=== PATIENT | male | born 1980 | race Caucasian/White ===

== ENCOUNTER → 2022-10-30 07:29 | Outpatient (REF) | payer BC, SELFPAY ==
--- NOTE | 2022-10-30 07:40 | CA_ITS ---
Transthoracic Echocardiogram Patient (Last, First, Middle): Humberto Encinas R Gender: Male Date of : 1980 Age: 42 Procedure Date: 10/30/2022 Procedure Type: Transthoracic Echocardiogram Location: OP Height: 180.34 cm Weight: 103.42 kg BSA: 2.23 m2 Heart Rate: bpm BP: 132 / 80 mmHg Gas Regulator Repairer: OCTAVIANO Referring MD: Sindy Thao PATTERN H[employer]ER Sales Special Agent: Kamari Celestin MD Symptoms: R07.89 CHEST PRESSURE, WORSNING EPISODES SVT Study Quality: Excellent ECG Rhythm: Sinus Conclusions: - Normal study Findings Left Ventricle Normal left ventricular size, thickness, and systolic function. The visually estimated ejection fraction is between 55-60%. Spectral Doppler is indicative of a normal filling pattern. Right Ventricle Normal right ventricular cavity size and systolic function. Atria Both atria are normal in size. There is lipomatous hypertrophy of the interatrial septum. There is no evidence of interatrial shunt. Aortic Valve Normal aortic valve structure and function. There is no aortic valve stenosis. There is no aortic valve regurgitation. Mitral Valve Normal mitral valve structure and function. There is no mitral valve regurgitation. There is no mitral valve stenosis. Pulmonic Valve The pulmonic valve is likely normal. Tricuspid Valve Normal tricuspid valve structure. There is trace tricuspid valve regurgitation. The right ventricular systolic pressure is normal. The right ventricular systolic pressure is 20 mmHg. Normal right atrial pressure. There is no evidence of pulmonary hypertension. Great Vessels All visible segments of the aorta are normal in size. The pulmonary artery was not well visualized. Venous The inferior vena cava is normal in size and collapses greater than 50% with inspiration. Pericardium/Pleural There is no evidence of pericardial effusion. Prior Study Comparison No prior study available for comparison. Measurements 2D Linear Measurements IVSd: 0.91 0.6-0.9/0.6-1.0 cm LVIDd: 5.48 3.9-5.3/4.2-5.9 cm LVIDd Index: 2.46 2.4-3.2/2.2-3.1 cm/m2 LVIDs: 3.32 2.0-3.6 cm LVPWd: 1.04 0.7-1.1 cm Ao Root: 3.50 2.1-3.5 cm LA Diam: 3.90 2.7-3.8/3.0-4.0 cm LAIDs Index: 1.75 1.5-2.3 cm/m2 LV Mass: 255.09 67-162/88-224 g LV Mass Index: 114.39 43-95/49-115 g/m2 LVOT Diam: 2.60 3.0+(-)1.3 cm 2D Systolic Function EF 4C: 53.60 >55% EF 2C: 51.50 >55% Mitral Valve MV Pk E: 0.68 MV PK A: 0.48 MV Decel Time: 187.00 E/A: 1.40 E'Lateral: 14.40 E'Medial: 8.05 E/E' Med: 8.50 E/E' Lat: 4.70 PHT: 55.00 MVA PHT: 4.00 Decel [place]: 3.65 Aortic Valve AoV Pk Last: 0.95 AoV Mn Last: 0.70 AoV VTI: 0.22 AoV Pk Grad: 4.00 Aov Mn Grad: 2.00 SUKHJINDER Cont.VTI: 4.58 LVOT LVOT Pk Last: 0.85 LVOT Mn Last: 0.57 LVOT VTI: 0.19 LVOT Pk Grad: 3.00 LVOT Mn Grad: 2.00 LVOT Diam: 2.60 LVOT Area: 5.31 Diastolic Function MV Pk E: 0.68 MV Pk A: 0.48 E/A: 1.40 E'Medial: 8.05 E/E' Med: 8.50 E' Laterial: 14.40 E/E' Lat: 4.70 Right Ventricle TAPSE (mm): 29.00 TVS' Last: 13.00 Tricuspid Valve TR Pk Last: 2.04 TR Pk Grad: 17.00 RA Press: 3.00 RVSP: 20.00 Great Vessels Aorta Ao Root-2D: 3.50 2.0-3.7 cm Ao Asc: 3.50 2.1-3.4 cm Pulmonary Valve PV Pk Last: 1.09 Peak PV Grad: 5.00 Updated in Other Vendor System with Status of Final Kamari Celestin MD electronically signed on 10/30/2022 5:41:02 PM with status of Final
== END ==
LOC: HO.CARD 07:29
PROVIDERS: PCP Nurse Practitioner Family; Visit Provider Nurse Practitioner Family
DX: R07.89 Other chest pain (principal); I47.1 Supraventricular tachycardia
CPT/HCPCS: 93306

== ENCOUNTER → 2023-02-04 08:30 | Outpatient (BNVA) | payer OTHER, SELFPAY | PROVIDERS: PCP Nurse Practitioner Family; Referring Provider Nurse Practitioner Family; Visit Provider Internal Medicine | DX: I47.1 Supraventricular tachycardia (principal) | CPT/HCPCS: 93005 ==

== ENCOUNTER 2025-07-12 11:30 | Outpatient (AMB) | payer OTHER, SELFPAY ==
[2025-07-12 11:34] VITALS: BP 136/82; PULSE 93; BMI 33.8
--- NOTE | 2025-07-12 11:34 | MHC.OFFVIS ---
Vital Signs 07/12/25 11:34 Height 5 ft 11 in Weight 242 lb 8.136 oz BMI 33.8 BP 136/82 Blood Pressure Location Lt brachial Position Sitting Pulse 93 Pulse Source Monitor Intake Visit Reasons: PCP referral- HS pt/ SVT- Pre op eye surg 07/14 Accompanied by: Self / Same As Patient Allergies No Known Allergies Allergy (Verified 07/12/25 11:38) Medication List - Last Reconciled 07/12/25 by Gary Man MD blood sugar diagnostic (FreeStyle Lite Strips) As directed blood-glucose meter (FreeStyle Lite Meter kit) As directed lancets (FreeStyle Lancets) As directed HPI Comments Details: Humberto has been referred for evaluation as he needs surgery for retinal detachment. He was seen in 2022 regarding supraventricular tachycardia. Has had palpitations since teenage years, sometimes years more than the others. In 2021, had palpitations which led to ER visit at [facility]. In one of those EKGs, suggestion of NSVT in the initial part which converted back to sinus rhythm. Since then, he is generally doing well. Rare palpitations and they only last for seconds or so nothing prolonged. No further ER visits. No other complaints like exertional chest pains extra. Unlimited exercise tolerance. [facility] Medical History (Updated 07/12/25 @ 11:55 by Gary Man MD) Diabetes mellitus Surgical History History of surgery on lower extremity Family History (Updated 02/04/23 @ 08:38 by Robyn Silva) Mother No problems noted. Father No problems noted. Social History (Updated 02/04/23 @ 08:39 by Robyn Silva) Alcohol intake: current Alcohol intake frequency: holidays/special occasions only Patient Tobacco Use Status: Never used Tobacco Review of Systems Const Denies daytime sleepiness, Denies difficulty sleeping, Denies snoring, Denies stops breathing during sleep and Denies weakness Card Denies chest pain, Denies rapid heart rate, Denies irregular heart rhythm, Denies claudication, Denies leg edema, Denies lightheadedness, Denies palpitations, Denies dyspnea, Denies dyspnea on exertion, Denies orthopnea, Denies paroxysmal nocturnal dyspnea and Denies slow heart rate Resp Denies cough, Denies dyspnea, Denies dyspnea on exertion and Denies snoring GI Reports no additional complaints, Denies hematochezia, Denies change in stool character and Denies dyspepsia Musc Denies abnormal gait, Denies muscle weakness and Denies numbness Neuro Denies abnormal gait, Denies numbness and Denies weakness Endo Denies palpitations Physical Exam Vital Signs: Last Vital Signs Pulse 93 07/12/25 11:34 BP 136/82 07/12/25 11:34 BMI result Body Mass Index 33.8 Const General: comfortable and no acute distress Orientation/consciousness: patient oriented x3 HEENT Other: Unremarkable Head: Yes normal to inspection Neck Neck: Yes normal visual inspection Chest Chest palpation & inspection: normal inspection of the chest Resp Auscultation: clear to auscultation bilaterally Cardio Palpation: normal PMI Heart sounds: S1 normal heart sound present, S2 normal heart sound present, no gallops, no murmurs and no rubs GI Palpation (GI): Soft to palpation Back/Spine/Pelvis Other: unremarkable Skin General skin exam: no rashes or lesions noted Neuro General: patient oriented x3 Extrem General: Yes normal to inspection Psych Mental Status: mental status grossly normal Office Procedures EKG Details: EKG with underlying sinus rhythm at 93/Min; no significant ST-T changes; [place] [id number], Complete Assessment & Plan Assessment & Plan (1) Supraventricular tachycardia: Code(s): I47.1 - Supraventricular tachycardia Category: Medical (2) Preoperative cardiovascular examination: Code(s): Z01.810 - Encounter for preprocedural cardiovascular examination Category: Medical Plan With regard to the SVT, narrow complex tachycardia known in the [facility] EKG-seen in the initial part but then converted to sinus in his later part of the EKG. Possible AVNRT. There is also a lot of artifact in that racing. Other EKGs shows sinus rhythm/sinus tachycardia. In the echocardiogram, LVEF is 55-60%. Otherwise normal. Overall, he has got supraventricular tachycardia with rare, brief symptoms. He is already well versed with arrhythmia management including Valsalva maneuver, taking some deep breaths extra and has been quite successful with that. We again discussed about maintenance medications like beta-blockers but he states he would rather not take anything as symptoms are very infrequent. We also discussed about EP referral but he felt he would rather leave it as it is for now. In case there is worsening palpitations, we will readdress that. With regard to the retinal surgery, may proceed. Low cardiac risk. Total time spent including review of data, counseling, documentation, coordination of care-32 minutes. Coding Level of Care Code Est Pt Level 4 (00042) Diagnoses Supraventricular tachycardia I47.1 Preoperative cardiovascular examination Z01.810 CPT Codes EKG - CPT: 65194-[id number], Complete ([id number])
--- OUTSIDE RECORDS SUMMARY | 2025-07-12 13:59 | XMS_ITS | Clinical Summary ---
Author Organization [employer] Address [address] [place] [address] [address] [place] [address] Care Team Providers Care Hand Stemmer Name Role Phone PcpOliver Unassigned Primary Care Provider U navailable Allergies No known active allergies Medications No known medications Active Problems Problem Noted Date Diagnosed Date Blurry vision, left eye 09/27/2024 Overview (09/27/2024): Patient reports spot of blurry vision at top of visual field, left. Ongoing since 2022 when he first felt foreign body sensation in left eye. Foreign body sensation has since resolved. EOMs intact, no foreign body visualized in eye, no eye pain. Patient has not seen an eye doctor, advised visit as soon as possible. Patient reports he will go see recovery analyst at [facility] today. Follow up if symptoms worsen or fail to improve. Routine general medical exam ination at a health care facility 06/21/2024 Overview (06/21/2024): CPE done 06/21/24. HEALTH CARE MAINTENANCE: Colonoscopy (age 45-75): No family history of colon cancer. AAA Screen (age 65-75, ever smoked): Never smoker LDCT (smoke >30 pack year, age 55-80): Never smoker DEXA (age 70): Age 43. : Hesitancy: None Interruption of flow: none Dysuria: none Hematuria: None Nocturia: Sometimes. PSA Screening: Age 43. EYES: Does not get, never had issues until recently. Recommended to make eye exam. DENTAL: Been over a year. NUTRITION: No soda, pasta, rice, has cut out a lot of processed food. Eating meat and salad. EXERCISE: Active job, plays basketball. IMMUNIZATIONS: Tetanus (every 10 years): 2020. COVID: 2021, x2. Did not have, does not want. FLU: Does not want. Obesity with body mass index 30 or greater 10/14 Overview (06/21/2024): BMI 32. Diet and exercise recommendations reviewed. I suggest a balanced diet of fruits, vegetables, whole grains, lean proteins, and healthy fats while limiting processed foods, added sugars, and unhealthy fats. Small, consistent changes can reduce chronic disease risks. Track your meals with a food diary, be mindful of portion sizes, and address barriers to healthy eating. Engage in both aerobic and strength exercises, aiming for 150 minutes of moderate- intensity activity weekly, with two strength-training sessions. Choose enjoyable workouts and integrate physical activities like taking stairs into your day-to-day life. Type 2 diabetes mellitus wit h hyperglycemia, without long-term current use of insulin 10/14/2022 Overview (09/27/2024): Diagnosed 2022, after spider bite. Managed with metformin 1000 mg once daily. A1c in 2021 - 7.1%. A1c 09/27/24: Hemoglobin A1C 4.0 - 6.0 % 5.2 Discussed options - we will discontinue metformin. Made significant lifestyle modifications - support and encouragement provided. Patient to continue lifestyle modification. Provided education on symptoms of hyperglycemia. Patient to follow up in 3 months to recheck A1c. SVT (supraventricular tachycardia) 10/14/2022 Overview (09/27/2024): ED visit 10/08/2022 noted to have HR as high as 212 with spontaneous cardioversion to NSR. Seen by cardiology - [place]. Was told heart looks healthy. Last episode in 2021 - 10 seconds - managed with breathing/positioning taught to him by cardiology. Advised healthy diet. Denies CP, SOB, dizziness, LE edema, palpitations. Follow up with cardiology PRN. Reviewed when to call clinic, when to go to ER. Encounters Date Type Department Care Team Description 06/30/2025 Results Follow-Up [facility] MEDICAL [address] [place] [address] Virginia Knight MD POCT glycosylated hemoglobin (Hgb A1c), CBC auto differential, Comprehensive Metabolic Panel [[id number]], Additional followed-up results: 2 06/30/[address] [address] Tatyana Moeller FNP Care Coordination 06/28/2025 12:00 PM EDT Office Visit [address] [address] Virginia Knight MD SVT (supraventricular tachycardia) ([facility]) (Primary Dx); Preop examination; Obesity with body mass index 30 or greater; History of diabetes mellitus; Blurry vision, left eye; Type 2 diabetes mellitus with hyperglycemia, without long-term current use of insulin ([facility]) 06/28/2025 Travel 06/21/2025 Travel 06/09/[address] [address] Tatyana Moeller FNP Cologuard Update from Last 3 Months Immunizations Immunization Administration Dates Next Due Pfizer Covid-19 Vaccine 12+ 12/28/2020, Family History Medical History Relation Name Comments No Known Problems Brother No Known Problems Mother Cancer Mother's Sister unsure of ty pe Diabetes Paternal Grandmother Relation Name Status Comments Brother Alive Father Alive Mother Alive Mother's Sister Paternal Grandmother Social History Tobacco Use Types Packs/Day Years Used Date Smoking Tobacco: Never Smokeless Tobacco: Never Tobacco Cessation:Counseling Given: Not Answered Alcohol Use Standard Drinks/Week Comments Yes 0 (1 standard drink = 0.6 oz pur e alcohol) Occassionally Alcohol Answer Date Recorded How often do you have a drink containing alcohol ? 1 06/28/2025 Average Number of Drinks Not on file 025 How often do you have six or more drinks on one occasion? 0 06/28/2025 Depression Answer Date Recorded Patient Health Questionnaire-9 Score 1 06/28/2025 Patient Health Questionnaire-9 Score 1 06/28/2025 Last PHQ-9: Questionnaire Data Not on file 0 06/28/2025 Housing Stability Answer Date Recorded What is your housing situation today? I have jordy montoya 06/28/[address] you li ve. Do you have problems with any of the following? None of the above 06/28/2025 Food Insecurity Answer Date Recorded Within the past 12 months, y ou worried that your food would run out before you got money to buy more: Never True 06/28/2025 Within the past 12 months,th e food you bought just didn't last and you didn't have enough money to get more: Never True Transportation Answer Date Recorded In the past 12 months, has l ack of transportation kept you from medical appts, meetings, work or from getting things needed for daily living? No 06/28/2025 Utilities Answer Date Recorded In the past 12 months, has t he electric, gas, oil or water company threatened to shut off services in your home? No 06/28/2025 Depression Answer Date Recorded Patient Health Questionnaire-2 Score 0 06/28/2025 Internet Access Answer Date Recorded Internet Access Q1 Yes 06/28/2025 Internet Access Q2 Not on file 06/28/2025 Sex and Gender Information Value Date Recorded Sex Assigned at Male 05/26/2024 10:00 AM EDT Legal Sex Male 8:34 PM EDT Gender Identity Male 05/26/2024 10:00 AM EDT Sexual Orientation Choose not to disclose 2023 10:00 AM EDT Last Filed Vital Signs Vital Sign Reading Time Taken Comments Blood Pressure 108/88 06/28/2025 12:07 PM EDT Pulse 200 06/28/2025 12:07 PM EDT Temperature 36.2 C (97.2 F) 06/28/2025 12:07 PM EDT Respiratory Rate 16 09/27/2024 8:44 AM EST Oxygen Saturation 98% 06/28/2025 12:07 PM EDT Inhaled Oxygen Concentration - - Weight 109 kg (240 lb) 06/28/2025 12:07 PM EDT Height 180.3 cm (5' 11 ) 06/28/2025 12:07 PM EDT Body Mass Index 33.47 06/28/2025 12:07 PM EDT Plan of Treatment Upcoming Encounters Date Type Department Care Team (Late st Contact Info) Description 10/03/2025 8:15 AM EST Office Visit [facility] MEDICAL [address] [place] [address] [phone] Heather Zazueta, DO [address] [place] [address] Health Maintenance Due Date Last Done Comments CT Colonography 1979 Colonoscopy 1979 FIT 1979 Sigmoidoscopy 1979 Diabetes: Foot Exam 1989 Eye Exam 1989 DTaP/Tdap/Td Vaccines (1 - Tdap) 1998 Hepatitis B Vaccines (1 of 3 - 19+ 3-dose series) 1998 Pneumococcal Vaccine: Pediatrics (0 to 5 Years) and At-Risk Patients (6 to 49) Years (1 of 2 - PCV) 1998 Lipid Panel 06/21/2025 06/21/2024, 06/17/2022 Influenza Vaccine (#1) 2025 FOBT 08/19/2025 08/19/2024 Tobacco Screening 09/27/2025 09/27/2024 Diabetes: Hemoglobin A1C 12/29/2025 025, 09/27/2024, 06/21/2024, Additional history exists Disability Screening 06/21/2026 06/21/2025 Alcohol/Substance Use Screening 06/28/2026 06/28/2025 Depression Screening 06/28/2026 06/28/2025, 06/28/20 Diabetes: Urine Protein Screening 06/28/2026 06/28/2025 Family Planning (PISQ) 06/28/2026 06/28/2025 SDOH Screening 06/28/2026 06/28/2025 Colorectal Cancer Screening 08/19/2027 FIT DNA/Cologuard 08/19/2027 08/19/2024 Zoster Vaccines (1 of 2) 2029 RSV Patients and Patients Aged 60 years or older (1 - 1-dose 75+ series) 2054 COVID-19 Vaccine Discontinued 12/28/2020, 12/07/2020 HIV Screening Completed 06/17/2022 Hepatitis C Screening Completed 06/17/2022 HIB Vaccines Aged Out No longer eligi ble based on patient's age to complete this topic HPV Vaccines Aged Out No longer eligi ble based on patient's age to complete this topic Hepatitis A Vaccines Aged Out No long er eligible based on patient's age to complete this topic IPV Vaccines Aged Out No longer eligi ble based on patient's age to complete this topic Meningococcal B Vaccine Aged Out No l onger eligible based on patient's age to complete this topic Meningococcal Vaccine Aged Out No mica raghav eligible based on patient's age to complete this topic RSV under 20 months Aged Out No longe r eligible based on patient's age to complete this topic Rotavirus Vaccines Aged Out No longer eligible based on patient's age to complete this topic Procedures Procedure Name Priority Date/Time Associated Diagnosis Comments AMB REFERRAL TO CARDIOLOGY Urgent 07/12/2025 SVT (supraventricular tachycardia) (CMS/HCC) Preop examination ECG 12-LEAD Routine 06/29/2025 12:57 AM EDT SVT (supraventricular tachycardia) (CMS/HCC) ALBUMIN/CREATININE RATIO, RANDOM URINE Routine 06/28/2025 2:04 PM EDT Type 2 diabetes mellitus with hyperglycemia, without long-term current use of insulin (CMS/HCC) TSH W/REFLEX TO FT4 Routine 06/28/2025 1 :50 PM EDT SVT (supraventricular tachycardia) (CMS/HCC) Obesity with body mass index 30 or greater History of diabetes mellitus COMPREHENSIVE METABOLIC PANEL Routine 06/28/2025 1:50 PM EDT SVT (supraventricular tachycardia) (CMS/HCC) Obesity with body mass index 30 or greater CBC WITH AUTO DIFFERENTIAL Routine 06/28/2025 1:50 PM EDT SVT (supraventricular tachycardia) (CMS/HCC) POCT GLYCOSYLATED HEMOGLOBIN (HGB A1C) Routine 06/28/2025 1:06 PM EDT Type 2 diabetes mellitus with hyperglycemia, without long-term current use of insulin (CMS/HCC) LAB COLOGUARD COLON CANCER SCREEN Routine 08/19/2024 8:30 AM EDT Screen for colon cancer LIPID PANEL, STANDARD Routine 06/21/2024 9:40 AM EDT Obesity with body mass index 30 or greater ZZZ HISTORICAL HEPATITIS C ANTIBODY TEST Routine 06/17/2022 8:36 AM EDT HIV 1/2 ANTIGEN/ANTIBODY, FOURTH GENERATION W/RFL Routine 06/17/2022 8:36 AM EDT from Last 3 Months or Most Recently Relevant to Health Maintenance Results * Referral to Cardiology (07/12/2025) Virginia Knight MD OUTPATIENT REFERRAL ORDERABLES F inal Result * ECG 12 lead (06/29/2025 12:57 AM EDT) Narrative Virginia Knight MD - 06/29/2025 12:57 AM EDT Sinus rhythm, HR 90, no acute findings Virginia Knight MD ECG ORDERABLES Final Result * Albumin/Creatinine Ratio, Random Urine (06/28/2025 2:04 PM EDT) Creatinine, Random Urine 24.3 Not Estab. mg/dL [facility] Albumin, Urine <3.0 Not Estab. ug/mL [facility] 1 Albumin/Creatini ne Ratio <12 0 - 29 mg/g creat [facility] 1 Comment: Normal: 0 - 29 Moderately increased: 30 - 300 Severely increased: >300 Urine (Urine, Random) 06/28/2025 2:04 PM EDT 06/28/2025 Narrative Resulting Agency Comment Performed at: 01 - [facility] [id number] Sonogram Technician: Emilia Fischer MD, Phone: [phone] Virginia Knight MD LAB URINE ORDERABLES Final Resul t [facility] * TSH with Reflex to Free T4 [[id number]] (06/28/2025 1:50 PM EDT) TSH 1.960 0.450 - 4.500 uIU/mL [facility] 1 Blood Venous blood specimen / Unknown 06/28/2025 1:50 PM EDT 06/28/2025 Narrative Resulting Agency Comment Performed at: 01 - [facility] [address] [id number] Sonogram Technician: Emilia Fischer MD, Phone: [phone] us Virginia Knight MD LAB BLOOD ORDERABLES Final Resul t [facility] * CBC auto differential (06/28/2025 1:50 PM EDT) White Blood Cell Count 5.8 3.4 - 10.8 x10E3/uL [facility] 1 Red Blood Cell Count 4.76 4.14 - 5.80 x10E6/uL [facility] 1 Hemoglobin 14.5 13.0 - 17.7 g/dL [facility] 1 Hematocrit 44.1 37.5 - 51.0 % [facility] 1 MCV 93 79 - 97 fL [facility] 1 MCH 30.5 26.6 - 33.0 pg [facility] 1 MCHC 32.9 31.5 - 35.7 g/dL [facility] 1 RDW 11.9 11.6 - 15.4 % [facility] 1 Platelet Count 182 150 - 450 x10E3/uL [facility] 1 Neutrophils 65 Not Estab. % [facility] 1 Lymphocytes 27 Not Estab. % [facility] 1 Monocytes 5 Not Estab. % [facility] 1 Eosinophils 1 Not Estab. % [facility] 1 Basophils 1 Not Estab. % [facility] 1 Absolute Neutrophils 3.8 1.4 - 7.0 x10E3/uL [facility] 1 Absolute Lymphocytes 1.6 0.7 - 3.1 x10E3/uL [facility] 1 Absolute Monocytes 0.3 0.1 - 0.9 x10E3/uL [facility] 1 Absolute Eosinophils 0.0 0.0 - 0.4 x10E3/uL [facility] 1 Absolute Basophils 0.0 0.0 - 0.2 x10E3/uL [facility] 1 Immature Granulocytes 1 Not Estab. % [facility] 1 Immature Grans (Abs) 0.1 0.0 - 0.1 x10E3/uL [facility] 1 Blood Venous blood specimen / Unknown 06/28/2025 1:50 PM EDT 06/28/2025 Narrative Resulting Agency Comment Performed at: - [facility] [place] [address] [place], [place] [id number] Sonogram Technician: Emilia Fischer MD, Phone: [phone] us Virginia Knight MD LAB BLOOD ORDERABLES Final Resul t [facility] * (ABNORMAL) Comprehensive Metabolic Panel [[id number]] (06/28/2025 1:50 PM EDT) Glucose 117(H) 70 - 99 mg/dL [facility] 1 Urea Nitrogen (BUN) 16 6 - 24 mg/dL [facility] 1 Creatinine, Serum 0.98 0.76 - 1.27 mg/dL [facility] 1 eGFR 97 >59 mL/min/1.7 3 [facility] 1 BUN/Creatinine Ratio 16 9 - 20 [facility] 1 Sodium 141 134 - 144 mmol/L [facility] 1 Potassium 5.0 3.5 - 5.2 mmol/L [facility] 1 Chloride 105 96 - 106 mmol/L [facility] 1 Anion Gap 16.0 10.0 - 18.0 mmol/L [facility] 1 Carbon Dioxide 20 20 - 29 mmol/L [facility] 1 Calcium 10.4(H) 8.7 - 10.2 mg/dL [facility] Protein, Total 7.0 6.0 - 8.5 g/dL [facility] 1 Albumin 4.9 4.1 - 5.1 g/dL [facility] 1 Globulin 2.1 1.5 - 4.5 g/dL [facility] 1 Bilirubin, Total 1.0 0.0 - 1.2 mg/dL [facility] 1 Alkaline Phosphatase 84 44 - 121 IU/L [facility] 1 AST 22 0 - 40 IU/L [facility] 1 ALT 25 0 - 44 IU/L [facility] 1 Blood Venous blood specimen / Unknown 06/28/2025 1:50 PM EDT 06/28/2025 Narrative Resulting Agency Comment Performed at: - [facility] [id number] Sonogram Technician: Emilia Fischer MD, Phone: [phone] us Virginia Knight MD LAB BLOOD ORDERABLES Final Resul t [facility] * POCT glycosylated hemoglobin (Hgb A1c) (06/28/2025 1:06 PM EDT) Hemoglobin A1C 5.5 4.0 - 5.7 % Blood Capillary blood specimen / Unknown 06/28/2025 1:06 PM EDT us Virginia Knight MD POINT OF CARE TEST ENTER/EDIT OR DERABLES Final Result * (ABNORMAL) Cologuard?? colon cancer screening (08/19/2024 8:30 AM EDT) Cologuard Result Positive( A) Negative 08/26/2024 8:47 PM EDT [facility] (CLIA #:[id number]) Comment: POSITIVE TEST RESULT. A positive Cologuard result should be followed with a colonoscopy or visual examination of the colon. The normal value (reference range) for this assay is negative. TEST DESCRIPTION: Composite algorithmic analysis of stool DNA-biomarkers with hemoglobin immunoassay. Quantitative values of individual biomarkers are not reportable and are not associated with individual biomarker result reference ranges. Cologuard is intended for colorectal cancer screening of adults of either sex, 45 years or older, who are at average-risk for colorectal cancer (CRC). Cologuard has been approved for use by the U.S. FDA. The performance of Cologuard was established in a cross sectional study of average-risk adults aged 50-84. Cologuard performance in patients ages 45 to 49 years was estimated by sub-group analysis of near-age groups. Colonoscopies performed for a positive result may find as the most clinically significant lesion: colorectal cancer [4.0%], advanced adenoma (including sessile serrated polyps greater than or equal to 1cm diameter) [20%] or non- advanced adenoma [31%]; or no colorectal neoplasia [45%]. These estimates are derived from a prospective cross-sectional screening study of 10,000 individuals at average risk for colorectal cancer who were screened with both Cologuard and colonoscopy. (Vincenzo Monge al, N Engl J Med 2014;370(14):5257-7673.) Cologuard may produce a false negative or false positive result (no colorectal cancer or precancerous polyp present at colonoscopy follow up). A negative Cologuard test result does not guarantee the absence of CRC or advanced adenoma (pre-cancer). The current Cologuard screening interval is every 3 years. ([place] [employer] and U.S. Multi-Society Task Force). Cologuard performance data in a 10,000 patient pivotal study using colonoscopy as the reference method can be accessed at the following location: www.Refer.com/results. Additional description of the Cologuard test process, warnings and precautions can be found at www.cologCelsius Game Studiosrd.com. Stool specimen (specimen) Rectal contents / Unknown 08/19/2024 8:30 AM EDT 08/20/2024 12:41 [address] [facility] LAB MOLECULAR DIAGNOSTICS ORDERA BLES Final Result [facility] (CLIA #:[id number]) [place] [address], * (ABNORMAL) Lipid Panel, Standard (06/21/2024 9:40 AM EDT) Pathologist [facility] Cholesterol, Total 196 100 - 199 mg/dL [facility] Triglycerides 74 0 - 149 mg/dL [facility] 1 HDL Cholesterol 41 >39 mg/dL [facility] 1 VLDL Cholesterol Wilder 14 5 - 40 mg/dL [facility] 1 LDL Chol Calc ([facility]) 141(H) 0 - 99 mg/dL [facility] 1 Blood Venous blood specimen / Unknown 06/21/2024 9:40 AM EDT 06/21/2024 Narrative [facility] 1 - 06/22/2024 6:05 AM EDT Performed at: 01 - [facility] [address] [id number] Sonogram Technician: Emilia Fischer MD, Phone: [phone] Tatyana DAVISP LAB BLOOD ORDERABLES Final Resul t Performing Organization Address [facility] Number [facility] * -Hepatitis C Antibody Test (06/17/2022 8:36 AM EDT) ANTI-HEPATITIS C NEGATIVE (NEG) [facility] Comment: Reference range: Negative This test was performed on the [employer] immunoassay system. 06/17/2022 8:36 AM EDT Tatyana DAVISP HISTORICAL/NON ORDERABLE LABS Fi nal Result Performing Organization Address [facility] Number [facility] [address] * -HIV AB-AG 4TH GENERATION (06/17/2022 8:36 AM EDT) RESULT 4TH GEN HIV AB-AG NEGATIVE (NEG) [facility] Comment: Negative for antibodies to HIV 1 and HIV 2 and P24 antigen. Reference range: Negative Additional note: Written patient authorization is required for each separate release of this test result. This test was performed on the [employer] immunoassay system. 06/17/2022 8:36 AM EDT Tatyana DAVISP LAB BLOOD ORDERABLES Final Resul t Performing Organization Address [facility] Phone Number [facility] [address] from Last 3 Months or Most Recently Relevant to Health Maintenance Insurance [facility] Care Teams Hand Stemmer Relationship Specialty Start Date End Date Oliver Ham Unassigned PCP - General Family Medicine 07/08/25
--- OUTSIDE RECORDS SUMMARY | 2025-07-12 13:59 | XMS_ITS | Patient Health Record ---
Author Organization [facility] Address [address] [place] [address] Care Team Providers Care Software Applications Engineer Name Role Phone Ciarra HINSON, Tanner Primary Care Provider Randy Mariano Unavailable [phone] Reason For Referral No Information Medications Medication SIG (Take, Route, Fr equency, Duration) Notes Start Date End Date Status Physical Therapy . . . 2-3x/week; Durat ion: 3-4 weeks 12/02/2016 Active Social History Tobacco use other than smoking: Question Answer Notes Are you an other tobacco user? No Problems Problem Type SNOMED Code ICD Code Onset Dates Problem Status W/U Status Risk Notes Problem Sprain of calcaneofibular ligament (26360668) Sprain of calcaneofibular ligament of left ankle, initial encounter (S93.412A) Active confirmed Problem Sprain of left ankle (42234403312215018 ) Sprain of other ligament of left ankle, initial encounter (S93.492A) Active confirmed Plan Of Treatment No Information Insurance Providers Payer Name Payer Address Payer Phone Subscriber Number Group Number Insured Name Patient Relationship to Insured Coverage Start Date Coverage End Date [employer] [address] [place] [address] [phone] [id number] Humberto Encinas Self - patient is the insured Medical (General) History Surgical History Surgery Date(Month/Year) hand/wrist [phone] appendectomy 2003 Hospitalization History Reason Date(Month/Year) Xrays left ankle 11/04/16
== END 2025-07-12 12:00 | disposition home or self-care (01) ==
LOC: HO.HCS 11:31
PROVIDERS: PCP Nurse Practitioner Family; Visit Provider Internal Medicine
DX: I47.10 Supraventricular tachycardia, unspecified (principal); Z01.810 Encounter for preprocedural cardiovascular examination
CPT/HCPCS: 93010; 99214

== ENCOUNTER → 2025-07-12 11:30 | Outpatient (BNVA) | payer OTHER, SELFPAY | PROVIDERS: PCP Nurse Practitioner Family; Visit Provider Internal Medicine | DX: I47.10 Supraventricular tachycardia, unspecified (principal); Z01.810 Encounter for preprocedural cardiovascular examination | CPT/HCPCS: 93005 ==